=== PATIENT | male | born 1990 | race Caucasian/White ===

== ENCOUNTER 2023-09-24 15:40 | Emergency (ER) | payer MEDICAID, SELFPAY ==
[2023-09-24 15:49] VITALS: BP 153/93; PULSE 80; RESP 15; TEMP 36.4; O2SAT 100
[2023-09-24] MEDS: Buprenorphine/Naloxone 4 mg/1 mg FILM 1 EACH SL (17:17)
[2023-09-24 17:54] VITALS: RESP 18
--- NOTE | 2023-09-24 18:08 | NUR.NOTE ---
Referral faxed to [facility] Amandeep Monzon art objects salesperson for telephone call, establish care, routine follow up. Nursing Note:
--- NOTE | 2023-09-24 22:16 | ED.GENADUL_ITS ---
Discharge Plan Disposition Patient Disposition: Home Discharge Details Clinical Impression: Substance abuse Primary Care Provider: Unknown,Unknown ED Provider: Maude Lomas Discharge Instructions Instructions: Substance Misuse Treatment Additional Instructions: Please reestablish with Joe as discussed I have also placed you on the list to establish care with a primary care physician and return earlier with new or worsening complaints Discharge Data Discharge Date/Time-TO BE ENTERED AT DEPARTURE: 09/24/23 17:54 HPI General Date/Time Provider Initiated Documentation: 09/24/23 16:01 . HPI Narrative: 33-year-old male presenting with anxiety and myalgias. Patient states has been on methadone for an extended period of time but discontinued approximately a week ago. He did use opioids approximately 2 days ago per patient. He is requesting methadone therapy. General Stated Complaint: DrugWithdr/MAT EMILY: 3 Exam Narrative Exam Narrative: Alert, oriented, anxious male in no acute distress, pupils equal round reactive to light and accommodation. Course Vital Signs Vital signs: Vital Signs Temperature 36.4 C L 09/24/23 15:49 Pulse 80 09/24/23 15:49 Respiratory Rate 15 09/24/23 15:49 Blood Pressure 153/93 H 09/24/23 15:49 Pulse Oximetry 100 09/24/23 15:49 Temperature 36.4 C L 09/24/23 15:49 Temperature Source Tympanic 09/24/23 15:49 Pulse 80 09/24/23 15:49 Respiratory Rate 18 09/24/23 17:54 Respiratory Effort Normal 09/24/23 16:13 Respiratory Pattern Normal 09/24/23 16:22 Blood Pressure 153/93 H 09/24/23 15:49 Blood Pressure Position Sitting 09/24/23 15:49 Pulse Oximetry 100 09/24/23 15:49 Oxygen Delivery Method Room Air 09/24/23 15:49 Oxygen Flow Rate 0 09/24/23 15:49 Medical Decision Making We confirmed with the methadone clinic and this patient requesting methadone that he has not had a dose in approximately a week and is no longer considered a patient. I did offer the patient a dose of Suboxone and [facility] has evaluated patient will see him tomorrow. He did receive 4 mg of Suboxone in the emergency department. Patient was discharged home in stable condition with stable vitals, return precautions reviewed and patient expressed understanding Quality:SDOH Health Related Social Needs: No Data to Display PFSH All Active Problems (Updated 09/24/23 @ 17:47 by PETER Saravia) Substance abuse (Acute) Social History Smoking risk assessment performed?: No Substance use type: opiates
== END 2023-09-24 17:54 | disposition home or self-care (01) ==
PROVIDERS: Emergency Provider Physician Assistant
DX: F11.90 Opioid use, unspecified, uncomplicated (principal); F41.9 Anxiety disorder, unspecified
CPT/HCPCS: 99283